=== PATIENT | female | born 1985 | race Caucasian/White ===

== ENCOUNTER 2022-01-26 13:52 | Outpatient (CLI) | payer OTHER, SELFPAY ==
--- NOTE | ~2022-01-26 | XR_ITS ---
EXAMINATION: XR foot LT standing 2V, XR foot RT standing 2V DATE: 01/26/2022 14:26 INDICATION: Rheumatoid arthritis with rheumatoid factor TECHNIQUE: 1. Standing dorsal plantar and lateral views of the left foot were obtained. 2. Standing dorsal plantar and lateral views of the right foot were obtained. COMPARISON: None. FINDINGS: Bilateral hallux valgus. There is also bilateral pes planus, left greater than right. No fracture. Mi ld osteoarthritis at the left first metatarsophalangeal joint. Remaining joint spaces are relatively preserved. No erosions to suggest an inflammatory arthritis. Soft tissues are unremarkable. No ankle joint effusions. IMPRESSION: 1. Bilateral mild hallux valgus and mild pes planus. 2. 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 Reviewed, dictated and finalized at location A. IMPRESSION: 1. Bilateral mild hallux valgus and mild pes planus. 2. 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
--- NOTE | ~2022-01-26 | XR_ITS ---
EXAMINATION: HAND-THAO ARTHRITIS 3+VIEWS DATE: 01/26/2022 14:26 INDICATION: Rheumatoid arthritis with rheumatoid factor TECHNIQUE: Posteroanterior, lateral, and oblique views of the left and of the right hands as well as a ballcatchers view of both hands were obtained. COMPARISON: None. FINDINGS: Left hand: Increased scapholunate angle consistent with dorsal intercalated segment instability (DISI) and sugge sting bilateral scapholunate ligament insufficiency. Mild palmar subluxation at the second metacarpop halangeal joint. No fracture. Severe relatively uniform joint space narrowing at the wrist joint. Sub articular lucency without sclerotic margins which could represent degenerative subchondral cyst or er osion along the scaphoid fossa. Additional severe relatively uniform joint space narrowing at the mid carpal and triscaphe joints. Moderate joint space narrowing narrowing at the first and third metacarp ophalangeal and second-fifth proximal interphalangeal joints and mild at the second-fifth distal inte rphalangeal joints. Additional lucencies suspicious for erosions at the triquetrum, radial head of th e first metacarpal. The relatively uniform joint space narrowing at the more severely affected joints and the erosions would be consistent with provided history of rheumatoid arthritis. Right hand: Similar findings in the right hand and wrist as at on the left. There is also dorsal intercalated seg ment instability (DISI) with increased scapholunate angle as well as mild palmar subluxation at the r ight second and third metacarpophalangeal joints. No fracture. Severe relatively uniform joint space narrowing at the wrist and midcarpal joints as well as at the third metacarpophalangeal joint. Modera te joint space narrowing at the triscaphe, first, second and third metacarpophalangeal and at the sec ond-fifth proximal interphalangeal joints. Mild joint space narrowing at the distal radioulnar, first carpometacarpal and remaining metacarpophalangeal and interphalangeal joints. No definitive erosions at the right hand. IMPRESSION: 1. Moderate to severe joint space narrowing at multiple joints bilateral hands most prominently in th e carpus and to lesser degree at the metacarpophalangeal and proximal interphalangeal joints. The chelsy rowing appears relatively uniform and there are a few erosions in the left hand and wrist as detailed above which would be consistent with inflammatory arthritis and the provided history of rheumatoid a rthritis. 2. 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 Reviewed, dictated and finalized at location A. IMPRESSION: 1. Moderate to severe joint space narrowing at multiple joints bilateral hands most prominently in the carpus and to lesser degree at the metacarpophalangeal and proximal interphalangeal joints. The narrowing appears relatively uniform a nd there are a few erosions in the left hand and wrist as detailed above which would be consistent with inflammatory arthritis and the provided history of rhe umatoid arthritis. 2. Bilateral dorsal intercalated segment instability (DISI) with increased scap holunate angle is consistent with insufficiency of the scapholunate ligaments.
[2022-01-26 14:55] LABS: Basophils Percent Auto 0.3 % (0.2-1.2); Eosinophils Percent Auto 0.8 % (0-4.4); Hemoglobin 11.5 g/dL (12.0-15.0); Immature Granulocyte Absolute 0.01 K/mm3 (0.00-0.031); Immature Granulocyte Percent A 0.3 % (0-0.5); Lymphocytes Percent Auto 27.7 % (18.3-44.2); Mean Corpuscular HGB Conc 31.9 g/dl (32-36); Mean Corpuscular Hemoglobin 29.9 pg (26-34); Mean Corpuscular Volume 93.8 fl (80-100); Mean Platelet Volume 9.7 fl (7.4-10.4); Monocytes Absolute Auto 0.4 K/mm3 (0.1-0.6); Monocytes Percent Auto 10.2 % (2.6-8.5); Neutrophils Absolute Auto 2.2 K/mm3 (1.3-6.7); Neutrophils Percent Auto 60.7 % (45.5-73.1); Platelet Count Result 248 k/mm3 (150-375); Red Blood Count 3.84 M/mm3 (4.2-5.4); Red Cell Distribution Width 13.9 % (11.5-14.5); White Blood Count 3.6 K/mm3 (4.5-10.0)
[2022-01-26 15:17] LABS: Alanine Aminotransferase 27 U/L (6-35); Albumin Level 4.7 g/dL (3.5-5.1); Alkaline Phosphatase 53 U/L (38-126); Anion Gap 10 mmol/L (8-16); Aspartate Amino Transferase 25 U/L (14-36); Bilirubin,Total 0.5 mg/dL (0.2-1.3); Blood Urea Nitrogen 11 mg/dL (7-17); CRP < 0.5 mg/dL (<1.0); Calcium 8.9 mg/dL (8.4-10.2); Carbon Dioxide 25 mmol/L (22-30); Chloride 104 mmol/L (98-107); Estimated Glomerular Filt Rate > 60; Glucose 90 mg/dL (65-110); Potassium 4.1 mmol/L (3.4-5.0); Sodium 139 mmol/L (137-145)
[2022-01-26 15:21] LABS: Appearance Urine Clear (Clear); Bilirubin Urine Negative (Negative); Blood Urine Negative (Negative); Color Urine Yellow (Yellow); Glucose Urine UA Negative (Negative); Ketones Urine Trace mg/dL (Negative); Leukocyte Esterase Ur Negative LEU/UL (Negative); Nitrate Urine Negative (Negative); Protein Urine Negative (Negative); pH Urine 7.5 (5.0-9.0)
[2022-01-26 15:43] LABS: Bacteria Urine Trace /hpf; Mucus Urine Rare /lpf; Squamous Epithelial Cell Urine Many /hpf (Few); WBC Urine 0-3 /hpf
[2022-01-26 15:48] LABS: SPREG INTERNAL CONTROL Positive; Serum Qual hCG Negative
[2022-01-26 15:50] LABS: Add Urine Microscopic? YES
[2022-01-26 16:03] LABS: Erythrocyte Sedimentation Rate 17 mm/hr (0-20)
[2022-01-26 18:25] LABS: Hepatitis B Surface Antigen Negative (Negative)
[2022-01-26 18:48] LABS: Hepatitis B Surface Anti Res Positive; Hepatitis C Virus Antibody Negative (Negative)
[2022-01-28 15:46] LABS: NIL 0.02 IU/mL; Quantiferon TB Plus, 1T NEGATIVE (NEGATIVE)
[2022-01-31 12:02] LABS: Anti Nuclear Antibody Pattern Nuclear, Speckled
[2022-02-01 08:47] LABS: Anti Cyclic Citrullinated Pept >250 Units (<20)
== END 2022-01-26 13:53 | disposition home or self-care (01) ==
PROVIDERS: PCP Internal Medicine; Visit Provider Internal Medicine
DX: M05.79 Rheumatoid arthritis with rheumatoid factor of multiple sites without organ or systems involvement (principal); M19.041 Primary osteoarthritis, right hand; M19.042 Primary osteoarthritis, left hand; M20.11 Hallux valgus (acquired), right foot; M20.12 Hallux valgus (acquired), left foot; M19.072 Primary osteoarthritis, left ankle and foot
CPT/HCPCS: 36415; 73130; 73620; 80053; 81001; 84703; 85025; 85652; 86038; 86039; 86140; 86200; 86480; 86706; 86803; 87340

== ENCOUNTER 2022-05-29 15:35 | Outpatient (CLI) | payer OTHER, SELFPAY ==
[2022-05-29 15:58] LABS: Hematocrit 35.5 % (37.0-47.0); Hemoglobin 11.4 g/dL (12.0-15.0); Mean Corpuscular HGB Conc 32.1 g/dl (32-36); Mean Corpuscular Volume 93.4 fl (80-100); Mean Platelet Volume 10.4 fl (7.4-10.4); Platelet Count Result 207 k/mm3 (150-375); Red Cell Distribution Width 12.9 % (11.5-14.5); White Blood Count 3.9 K/mm3 (4.5-10.0)
[2022-05-29 16:13] LABS: Alanine Aminotransferase 22 U/L (6-35); Albumin Level 4.6 g/dL (3.5-5.1); Alkaline Phosphatase 46 U/L (38-126); Anion Gap 6 mmol/L (8-16); Aspartate Amino Transferase 24 U/L (14-36); Bilirubin,Total 0.5 mg/dL (0.2-1.3); Blood Urea Nitrogen 15 mg/dL (7-17); CRP < 0.5 mg/dL (<1.0); Calcium 8.8 mg/dL (8.4-10.2); Carbon Dioxide 28 mmol/L (22-30); Chloride 102 mmol/L (98-107); Estimated Glomerular Filt Rate > 60; Glucose 96 mg/dL (65-110); Sodium 136 mmol/L (137-145)
[2022-05-29 16:28] LABS: Appearance Urine Slightly Cloudy (Clear); Bilirubin Urine Negative (Negative); Blood Urine Trace-intact (Negative); Color Urine Yellow (Yellow); Glucose Urine UA Negative (Negative); Ketones Urine Trace mg/dL (Negative); Leukocyte Esterase Ur Negative LEU/UL (Negative); Nitrate Urine Negative (Negative); Protein Urine 2+ mg/dL (Negative); Specific Grav Ur >= 1.030 (1.001-1.035); Urobilinogen Urine 0.2 mg/dL (<2.0)
[2022-05-29 16:34] LABS: Bacteria Urine Trace /hpf; Mucus Urine Heavy /lpf; RBC Urine 0-2 /hpf (0-2); Squamous Epithelial Cell Urine Moderate /hpf (Few); WBC Urine 0-3 /hpf
[2022-05-29 16:35] LABS: Add Urine Microscopic? YES
[2022-05-29 16:52] LABS: Erythrocyte Sedimentation Rate 18 mm/hr (0-20)
[2022-05-30 10:53] LABS: Complement C3 80 mg/dL (88-165)
[2022-06-01 13:40] LABS: SM Antibody <1.0; SM/RNP Antibody >8.0
[2022-06-01 20:48] LABS: SS-A <1.0; SS-B <1.0
[2022-06-03 12:44] LABS: Lupus dRVVT Screen 34 sec (<=45); PTT-LA Screen 30 sec (<=40)
== END 2022-05-29 15:36 | disposition home or self-care (01) ==
LOC: ANHLAB 15:37
PROVIDERS: PCP Internal Medicine; Visit Provider Internal Medicine
DX: M05.79 Rheumatoid arthritis with rheumatoid factor of multiple sites without organ or systems involvement (principal); M19.90 Unspecified osteoarthritis, unspecified site
CPT/HCPCS: 36415; 80053; 81001; 85027; 85613; 85652; 85730; 86140; 86160; 86225; 86235

== ENCOUNTER 2022-11-08 09:21 | Outpatient (CLI) | payer OTHER, SELFPAY ==
[2022-11-08 10:23] LABS: Appearance Urine Cloudy (Clear); Bacteria Urine 1+ /hpf; Bilirubin Urine Negative (Negative); Blood Urine 1+ (Negative); Color Urine Yellow (Yellow); Glucose Urine UA Negative (Negative); Hyaline Casts Urine Present /lpf; Ketones Urine Trace mg/dL (Negative); Leukocyte Esterase Ur Trace LEU/UL (Negative); Mucus Urine Present /lpf; Need Manual Microscopic Reviewed; Nitrate Urine Negative (Negative); Protein Urine 1+ mg/dL (Negative); RBC Urine 0-2 /hpf (0-2); Specific Grav Ur 1.029 (1.001-1.035); Squamous Epithelial Cell Urine Many /hpf (Few); WBC Urine 0-5 /hpf; pH Urine 5.5 (5.0-9.0)
[2022-11-08 10:40] LABS: Mean Corpuscular HGB Conc 32.4 g/dl (32-36); Mean Corpuscular Hemoglobin 29.6 pg (26-34); Mean Corpuscular Volume 91.4 fl (80-100); Mean Platelet Volume 10.4 fl (7.4-10.4); Platelet Count Result 208 k/mm3 (150-375); Red Blood Count 4.05 M/mm3 (4.2-5.4); Red Cell Distribution Width 12.9 % (11.5-14.5); White Blood Count 4.1 K/mm3 (4.5-10.0)
[2022-11-08 10:41] LABS: Add Urine Microscopic? YES
[2022-11-08 10:51] LABS: Alanine Aminotransferase 17 U/L (6-35); Albumin Level 4.4 g/dL (3.5-5.1); Alkaline Phosphatase 45 U/L (38-126); Anion Gap 7 mmol/L (8-16); Aspartate Amino Transferase 23 U/L (14-36); Bilirubin,Total 0.8 mg/dL (0.2-1.3); Blood Urea Nitrogen 17 mg/dL (7-17); CRP < 0.5 mg/dL (<1.0); Calcium 8.9 mg/dL (8.4-10.2); Carbon Dioxide 28 mmol/L (22-30); Chloride 104 mmol/L (98-107); Estimated Glomerular Filt Rate > 60; Glucose 91 mg/dL (65-110); Potassium 3.6 mmol/L (3.4-5.0); Sodium 139 mmol/L (137-145)
[2022-11-08 12:33] LABS: Erythrocyte Sedimentation Rate 18 mm/hr (0-20)
== END 2022-11-08 09:22 | disposition home or self-care (01) ==
LOC: ANHLAB 09:23
PROVIDERS: PCP Internal Medicine; Visit Provider Internal Medicine
DX: M05.79 Rheumatoid arthritis with rheumatoid factor of multiple sites without organ or systems involvement (principal); M19.90 Unspecified osteoarthritis, unspecified site
CPT/HCPCS: 36415; 80053; 81001; 85027; 85652; 86140

== ENCOUNTER 2023-02-05 12:45 | Outpatient (CLI) | payer OTHER, SELFPAY ==
[2023-02-05 14:02] LABS: Basophils Percent Auto 0.4 % (0.2-1.2); Eosinophils Percent Auto 0.4 % (0-4.4); Hematocrit 36.5 % (37.0-47.0); Hemoglobin 11.5 g/dL (12.0-15.0); Immature Granulocyte Absolute 0.02 K/mm3 (0.00-0.031); Immature Granulocyte Percent A 0.4 % (0-0.5); Lymphocytes Percent Auto 23.6 % (18.3-44.2); Mean Corpuscular HGB Conc 31.5 g/dl (32-36); Mean Corpuscular Hemoglobin 30.1 pg (26-34); Mean Corpuscular Volume 95.5 fl (80-100); Mean Platelet Volume 10.4 fl (7.4-10.4); Monocytes Absolute Auto 0.3 K/mm3 (0.1-0.6); Monocytes Percent Auto 5.3 % (2.6-8.5); Neutrophils Absolute Auto 3.6 K/mm3 (1.3-6.7); Neutrophils Percent Auto 69.9 % (45.5-73.1); Platelet Count Result 200 k/mm3 (150-375); Red Blood Count 3.82 M/mm3 (4.2-5.4); Red Cell Distribution Width 12.3 % (11.5-14.5); White Blood Count 5.1 K/mm3 (4.5-10.0)
[2023-02-05 14:17] LABS: Alanine Aminotransferase 20 U/L (6-35); Albumin Level 4.4 g/dL (3.5-5.1); Alkaline Phosphatase 40 U/L (38-126); Anion Gap 6 mmol/L (8-16); Aspartate Amino Transferase 27 U/L (14-36); Bilirubin,Total 0.7 mg/dL (0.2-1.3); Blood Urea Nitrogen 13 mg/dL (7-17); CRP < 0.5 mg/dL (<1.0); Calcium 8.9 mg/dL (8.4-10.2); Carbon Dioxide 29 mmol/L (22-30); Chloride 102 mmol/L (98-107); Estimated Glomerular Filt Rate > 60; Glucose 116 mg/dL (65-110); Potassium 3.7 mmol/L (3.4-5.0); Sodium 137 mmol/L (137-145)
[2023-02-05 14:46] LABS: Erythrocyte Sedimentation Rate 18 mm/hr (0-20)
[2023-02-05 17:21] LABS: Creatinine Urine 113.4 mg/dL; Total Protein Urine Random 6 mg/dL; Ur Ttl Prot Creatinine Ratio 0.05 mg/mg (0-0.20)
== END 2023-02-05 12:46 | disposition home or self-care (01) ==
LOC: ANHLAB 12:47
PROVIDERS: Visit Provider Internal Medicine
DX: M19.90 Unspecified osteoarthritis, unspecified site (principal); M05.79 Rheumatoid arthritis with rheumatoid factor of multiple sites without organ or systems involvement
CPT/HCPCS: 36415; 80053; 82570; 84156; 85025; 85652; 86140